=== PATIENT | female | born 2000 | race Caucasian/White ===

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

== ENCOUNTER → 2023-07-20 | Outpatient (CLI) | payer OTHER | END | disposition home or self-care (01) | LOC: LAB 12:55 | PROVIDERS: ATTEND Nurse Practitioner | DX: O20.9 Hemorrhage in early pregnancy, unspecified (principal) ==

== ENCOUNTER 2024-01-31 16:44 | Emergency (ER) | payer BC, OTHER ==
[~2024-01-31] VITALS: Ht 152.4 cm; Wt 54.4 kg
[2024-01-31 17:12] LABS: BILIRUBIN Negative (Negative); BLOOD Trace-Lysed (Negative); CLARITY Clear (Clear); COLOR Yellow (Yellow); GLUCOSE Negative (Negative); KETONE Trace (Negative); LEUKO ESTERASE Trace (Negative); NITRITE Negative (Negative); PH 6.5 (4.5-8.0)
[2024-01-31 17:20] LABS: URINE AMPHETAMINES Negative (1000ng/ml); URINE BARBITURATES Negative (200ng/ml); URINE BENZODIAZEPINES Negative (200ng/ml); URINE CANNABINOIDS (THC) Negative (50ng/ml); URINE COCAINE Negative (300ng/ml); URINE METHADONE Negative (300ng/ml); URINE OPIATES Negative (300ng/ml); URINE PHENCYCLIDINE Negative (25ng/ml)
[2024-01-31] MEDS ORDERED: ESCITALOPRAM OXA5 MG PO (17:26)
[2024-01-31 17:32] LABS: BASO % 0.5 % (0.0-1.0); EOS # 0.4 10*3/uL (0.0-0.4); EOS % 5.3 % (1.0-4.0); HEMATOCRIT 40.4 % (37.0-47.0); LYMPH # 2.5 10*3/uL (1.3-4.4); LYMPH % 34.7 % (27.0-41.0); MEAN CELL VOLUME 89.4 fl (81.0-99.0); MEAN CORPUSCULAR HGB 30.3 pg (27.0-31.0); MEAN CORPUSCULAR HGB CONC 33.9 g/dl (33.0-37.0); MEAN PLATELET VOLUME 9.7 fl (9.6-12.3); MONO # 0.7 10*3/uL (0.1-1.0); MONO % 9.6 % (3.0-9.0); NEUT # 3.6 10*3/uL (2.3-7.9); NEUT % 49.6 % (47.0-73.0); PLATELET COUNT AUTOMATED 256 10*3/uL (130-400); RED BLOOD COUNT 4.52 10*6/uL (4.10-5.10); WHITE BLOOD COUNT 7.3 10*3/uL (4.8-10.8)
[2024-01-31 17:32] LABS: BACTERIA 2+; EPITHELIAL CELLS 51-100; WBC 0-2 wbc/hpf (0-5)
[2024-01-31 17:50] LABS: BUN 8 mg/dl (9-23); CHLORIDE 108 mmol/L (98-107); CPK 79 U/L (34-171); POTASSIUM 3.6 mmol/L (3.4-5.1)
[2024-01-31 17:53] LABS: ETHYL ALCOHOL < 3.0 mg/dl (<3)
== END 2024-02-01 13:23 ==
LOC: ED 16:44
PROVIDERS: Physician Assistant Medical
DX: F43.21 Adjustment disorder with depressed mood (principal)

== ENCOUNTER → 2025-07-05 | Outpatient (CLI) | payer BC ==
[~2025-07-05] MED LIST changes: +ESCITALOPRAM OXA5 MG PO
== END | disposition home or self-care (01) ==
LOC: US 03:17
PROVIDERS: ATTEND Nurse Practitioner Women's Health
DX: N64.4 Mastodynia (principal); N63.0 Unspecified lump in unspecified breast